=== PATIENT | male | born 1980 | race Caucasian/White ===

== ENCOUNTER 2018-12-14 07:11 | Emergency (ER) | payer OTHER ==
[2018-12-14 07:18] VITALS: BP 148/81
--- NOTE | 2018-12-14 07:33 | ER Document Report ---
ED General - General Chief Complaint: Cold Symptoms Stated Complaint: COUGH Time Seen by Provider: 12/14/18 07:27 Notes: 30-year-old male presents with ongoing cough right ear pressure, congestion and difficulty with work. He was diagnosed here 8 days ago with middle ear infection and is still taking antibiotics but did not follow any of the other instructions including humidifier decongestants and rest. He is not currently short of breath and has no chest pain today. TRAVEL OUTSIDE OF THE [place] IN LAST 30 DAYS: No - Related Data Allergies/Adverse Reactions: No Known Allergies Allergy (Verified 12/14/18 07:18) Past Medical History - Social History Smoking Status: Current Every Day Smoker Smoking Education Provided: Yes - The patient ED visit today was directly related to their abuse of tobacco. Family History: Reviewed & Not Pertinent Renal/ Medical History: Denies: Hx Peritoneal Dialysis Review of Systems - Review of Systems Notes: REVIEW OF SYSTEMS GEN: Denies fever, chills, weight loss ENT: Right ear pressure and pain runny nose EYES: Denies blurry vision, eye pain, discharge CV: Denies chest pain, palpitations, edema RESP: Cough shortness of breath no wheezing GI: Denies abdominal pain, nausea, vomiting, diarrhea MSK: Denies joint pain/swelling, edema, SKIN: Denies rash, skin lesions LYMPH: Denies swollen glands/lymph nodes NEURO: Denies headache, focal weakness or numbness, dizziness PSYCH: Denies depression, suicidal or homicidal ideation PHYSICAL EXAMINATION General: No acute distress, well-nourished Head: Atraumatic, normocephalic ENT: Mouth normal, oropharynx moist, no exudates or tonsillar enlargement or dullness of the right tympanic membrane without pus or bulging congested voice Eyes: Conjunctiva normal, pupils equal, lids normal Neck: No JVD, supple, no guarding CVS: Normal rate, regular rhythm, no murmurs Resp: No resp distress, equal and normal breath sounds bilaterally GI: Nondistended, soft, no tenderness to palpation, no rebound or guarding Ext: No deformities, no edema, normal range of motion in upper and lower ext Back: No CVA or midline TTP Skin: No rash, warm Lymphatic: No lymphadeopathy noted Neuro: Awake, alert. Face symmetric. GCS 15. Physical Exam - Vital signs Vitals: Temp Pulse Resp BP Pulse Ox 97.9 F 86 16 148/81 H 98 12/14/18 07:16 12/14/18 07:16 12/14/18 07:16 12/14/18 07:16 12/14/18 07:16 Course - Re-evaluation Re-evalutation: 12/14/18 07:32 Ongoing URI symptoms normal saturation and lung exam this is likely a viral process given the lack of improvement with antibiotics, and the patient smokes which will make everything last longer and he is not taking any of his symptom medic therapy. I do not think he requires further work-up today and will be discharged with a work note to recover and follow symptomatically up instructions. I have discussed with the patient there likely diagnosis, aftercare plan, follow-up plans and my usual and customary return precautions. They verbalized understanding of this. - Vital Signs Vital signs: Temp Pulse Resp BP Pulse Ox 97.9 F 86 16 148/81 H 98 12/14/18 07:16 12/14/18 07:16 12/14/18 07:16 12/14/18 07:16 12/14/18 07:16 Discharge - Discharge Clinical Impression: Respiratory infection Condition: Good Disposition: HOME, SELF-CARE Additional Instructions: Please buy Flonase nasal spray and Sudafedcontaining products for your symptoms. Forms: Return to Work
== END 2018-12-14 07:40 | disposition home or self-care (01) ==
LOC: ER 07:11
DX: J98.8 Other specified respiratory disorders (principal); R05 Cough; F17.200 Nicotine dependence, unspecified, uncomplicated
CPT/HCPCS: 99283

== ENCOUNTER 2019-07-03 10:48 | Emergency (ER) | payer OTHER ==
[2019-07-03 10:52] VITALS: BP 141/88
--- NOTE | 2019-07-03 11:00 | ER Document Report ---
HPI - HPI Time Seen by Provider: 07/03/19 10:53 Pain Level: 0 Notes: Patient is a 30-year-old male presenting to the emergency department chief complaint of cough, congestion and sore throat that began 1 week ago. Patient reports he has not taken any medications for his symptoms. He denies any fevers, nausea or vomiting. Past Medical History - General Information source: Patient - Social History Smoking Status: Current Every Day Smoker Frequency of alcohol use: None Drug Abuse: None Family History: Reviewed & Not Pertinent Patient has suicidal ideation: No Patient has homicidal ideation: No - Medical History Medical History: Negative Renal/ Medical History: Denies: Hx Peritoneal Dialysis Surgical Hx: Negative Vertical Provider Document - CONSTITUTIONAL Notes: PHYSICAL EXAMINATION: GENERAL: Well-appearing, well-nourished and in no acute distress. HEAD: Atraumatic, normocephalic. EYES: Pupils equal round extraocular movements intact, conjunctiva are normal. ENT: Nares patent, oropharynx clear, nonerythematous, no exudates. NECK: Normal range of motion LUNGS: No respiratory distress, lung sounds clear and equal bilaterally. Musculoskeletal: Normal range of motion NEUROLOGICAL: Normal speech, normal gait. PSYCH: Normal mood, normal affect. SKIN: Warm, Dry, normal turgor, no rashes or lesions noted. - INFECTION CONTROL TRAVEL OUTSIDE OF THE [place] IN LAST 30 DAYS: No Course - Vital Signs Vital signs: Temp Pulse Resp BP Pulse Ox 97.4 F 90 14 141/88 H 97 07/03/19 10:51 07/03/19 10:51 07/03/19 10:51 07/03/19 10:51 07/03/19 10:51 Discharge - Discharge Clinical Impression: Upper respiratory infection Qualifiers: URI type: unspecified URI Qualified Code(s): J06.9 - Acute upper respiratory infection, unspecified Condition: Stable Disposition: HOME, SELF-CARE Instructions: Upper Respiratory Illness ([facility]) Additional Instructions: Take medications as prescribed, push fluids, get plenty of rest. Follow-up with your primary care if not improving over the next 3 to 5 days. Prescriptions: Codeine Phosphate/Guaifenesin [Cheratussin AC Syrup] 10 ml PO QHS #120 ml Benzonatate [Tessalon Perles 100 mg Capsule] 100 mg PO Q8HP PRN #30 capsule PRN Reason: Prednisone [Deltasone 20 mg Tablet] 3 tab PO DAILY 5 Days #15 tablet Forms: Return to Work
== END 2019-07-03 11:02 | disposition home or self-care (01) ==
LOC: ER 10:48
DX: J06.9 Acute upper respiratory infection, unspecified (principal); R05 Cough; J02.9 Acute pharyngitis, unspecified; F17.200 Nicotine dependence, unspecified, uncomplicated
CPT/HCPCS: 99283

== ENCOUNTER 2019-07-12 01:42 | Emergency (ER) | payer OTHER ==
[2019-07-12] MEDS ORDERED: AMOXICILLIN TR/POT CLAVULANATE 500-125 MG TAB PO ONE (02:44)
[2019-07-12] MEDS ORDERED: OXYCODONE-ACETAMINOPHEN 5-325 MG TABLET PO ONE (02:44)
--- NOTE | 2019-07-12 02:51 | ER Document Report ---
ED General - General Chief Complaint: Ear Pain Stated Complaint: RIGHT EAR PRESSURE AND PAIN Time Seen by Provider: 07/12/19 02:35 Primary Care Provider: [facility] [Primary Care Provider] - Follow up as needed TRAVEL OUTSIDE OF THE [place] IN LAST 30 DAYS: No - HPI Notes: Patient is a 38-year-old male who presents emergency department for evaluation of right ear pain. It started yesterday but worsened significantly over the last several hours. He describes it as a sharp and stabbing pain, rates it a 9 out of 10. He said no fevers or chills. He has had some nasal congestion and cough. He was seen here recently, treated with steroids for bronchitis. He does continue to smoke. - Related Data Allergies/Adverse Reactions: No Known Allergies Allergy (Verified 12/14/18 07:18) Home Medications: None Past Medical History - General Information source: Patient - Social History Smoking Status: Current Every Day Smoker Family History: Reviewed & Not Pertinent Patient has suicidal ideation: No Patient has homicidal ideation: No Renal/ Medical History: Denies: Hx Peritoneal Dialysis Past Surgical History: Reports: Hx Orthopedic Surgery Review of Systems - Review of Systems Constitutional: No symptoms reported EENT: See HPI Cardiovascular: No symptoms reported Respiratory: See HPI Gastrointestinal: No symptoms reported Genitourinary: No symptoms reported Musculoskeletal: No symptoms reported Skin: No symptoms reported Neurological/Psychological: No symptoms reported Physical Exam - Vital signs Vitals: Temp Pulse Resp BP Pulse Ox 97.5 F 90 17 139/92 H 98 07/12/19 01:54 07/12/19 01:54 07/12/19 01:54 07/12/19 01:54 07/12/19 01:54 - Notes Notes: Is a 38-year-old male who appears his stated age in no acute distress. Head is normocephalic and atraumatic, pupils are equal round, reactive to light. Left TM is obscured by cerumen. Right TM is retracted with suppurative effusion, markedly erythematous. Nares are patent oral mucosa is moist. Pharynx is mildly erythematous without exudate. Neck is supple without thyromegaly or meningismus. Heart is regular rate and rhythm, lungs are clear to station bilaterally. Patient is awake and alert, oriented x3. No focal neurological deficits. Course - Re-evaluation Re-evalutation: 07/12/19 02:48 Patient presents emergency department for evaluation. He does have a significant right otitis media. He is given Percocet as well as Augmentin. I will send him home with prescription for Augmentin. He is to take anti- inflammatories for pain from now on. He is to follow-up with primary care, return to the ED with worsening or new concerning symptoms of any sort. - Vital Signs Vital signs: Temp Pulse Resp BP Pulse Ox 97.9 F 94 20 137/98 H 97 07/12/19 02:55 07/12/19 02:55 07/12/19 02:55 07/12/19 02:55 07/12/19 02:55 Discharge - Discharge Clinical Impression: Right otitis media Qualifiers: Otitis media type: suppurative Chronicity: acute Recurrence: not specified as recurrent Condition: Stable Disposition: HOME, SELF-CARE Instructions: Otitis Media ([facility]) Additional Instructions: Take all the antibiotic as prescribed until gone. Please take [id number] anti-inflammatories as needed for pain, such as ibuprofen or naproxen. Follow- up with primary care next week. Return to the ED with worsening or new concerning symptoms of any sort. Prescriptions: Amox Tr/Potassium Clavulanate [Augmentin 875-125 Tablet] 1 tab PO BID 10 Days #14 tablet Forms: Return to Work Referrals: [facility] [Primary Care Provider] - Follow up as needed
[2019-07-12 02:56] VITALS: BP 137/98
== END 2019-07-12 03:00 | disposition home or self-care (01) ==
LOC: ER 01:42
DX: H66.001 Acute suppurative otitis media without spontaneous rupture of ear drum, right ear (principal); H92.01 Otalgia, right ear; F17.200 Nicotine dependence, unspecified, uncomplicated
CPT/HCPCS: 99282